=== PATIENT | male | born 1995 | race Caucasian/White ===

== ENCOUNTER 2018-06-09 01:50 | Emergency (ER) | payer BC, SELFPAY ==
[2018-06-09] MEDS: NORCO 5/325MG TABLET (BULK FOR ED) PO (02:50)
[2018-06-09] MEDS: MORPHINE 10 MG/ML 1ML VIAL (J2270) IM (02:51)
== END 2018-06-09 02:59 | disposition home or self-care (01) ==
LOC: M ED 01:50
DX: T23.202A Burn of second degree of left hand, unspecified site, initial encounter (principal); X08.8XXA Exposure to other specified smoke, fire and flames, initial encounter; Y92.009 Unspecified place in unspecified non-institutional (private) residence as the place of occurrence of the external cause
CPT/HCPCS: J2270